=== PATIENT | female | born 1985 | race Caucasian/White ===

== ENCOUNTER 2019-04-02 01:59 | Emergency (ER) | payer OTHER ==
[~2019-04-02] VITALS: Ht 167.6 cm; Wt 116.6 kg
[~2019-04-02 01:59] MED LIST: ACETAMINOPHEN-1 EAC1 PO; ALLERGY MEDICIN25 MG PO; ALLOPURINOL 30300 M2 PO; CARDIZEM CD180 MG PO; CEFDINIR300 MG PO; FLONASE 0.05%50 MCG NASAL; HYDROCODONE-AP1 EAC6 PO; LEVAQUIN 500 M500 M2 PO; MAXALT10 MG PO; MEDROXYPROGESTE10 MG PO; MELATONIN3 MG PO; NAPROSYN500 MG PO; PERCOCET PO; PHENERGAN 25 MG25 M1 PO; TOPAMAX200 MG PO; TRIAMCINOLONE A80 G2 TOP; TYLENOL325 MG PO; ZOFRAN ODT4 MG DISSOLVE; ZOFRAN ODT8 MG PO
[2019-04-02] MEDS ORDERED: ESTRODIAL PO (02:07)
[2019-04-02] MEDS ORDERED: PROGESTERO50 MG/1 ML IM (02:08)
[2019-04-02 03:07] LABS: ABSOLUTE NEUTROPHILS 5.5 thou/uL (1.4-8.2); BASOPHILS 0.6 % (0.0-2.0); EOSINOPHILS 0.5 % (0.0-3.0); HEMOGLOBIN 13.3 gm/dL (12.0-15.0); LYMPHOCYTES 14.8 % (24.0-44.0); MCH 29.9 pg (26.0-34.0); MCHC 32.5 g/dL (28.0-37.0); MCV 91.9 fL (80.0-100.0); MONOCYTES 11.5 % (1.0-8.0); PLATELET COUNT 254 thou/uL (150-400); POLYS 72.6 % (36.0-66.0); RBC 4.46 mil/uL (4.20-5.00); RDW 14.2 % (10.5-14.5); WBC 7.5 thou/uL (4.0-11.0)
[2019-04-02 03:13] LABS: ANION GAP 10 mmol/L (7-16); BUN 7 mg/dL (7-18); CALCIUM 9.3 mg/dL (8.5-10.1); CHLORIDE 102 mmol/L (98-107); CO2 24 mmol/L (21-32); CREATININE 0.9 mg/dL (0.6-1.0); GLUCOSE 97 mg/dL (74-106); POTASSIUM 3.3 mmol/L (3.5-5.1); SODIUM 136 mmol/L (136-145)
[2019-04-02 03:21] LABS: TROPONIN-I <0.06 ng/mL (<0.06)
[2019-04-02 04:32] VITALS: BP 105/76
--- NOTE | 2019-04-02 16:10 | EKG ---
[address] [place] [address] ELECTROCARDIOGRAM REPORT Name: KENDRA VILLANUEVA [id number] Admission: 04/02/19 Attend Phys: Discharge: 04/02/19 Date of : 87 Report #: [id number] THIS REPORT FOR: //name// [facility] ED Test Date: 2019-04-02 Test Time: 02:40:17 Pat Name: KENDRA VILLANUEVA Department: Room: Gender: F [employer] In[employer]ist: : [id number] Requested By: Roscoe Angel Order Number: [id number] MD: Eros Perry Measurements Intervals [place] Rate: 91 P: 38 TX: 158 QRS: 3 QRSD: 89 T: 13 QT: 367 QTc: 452 Interpretive Statements Sinus rhythm Normal tracing Compared to ECG 11/19/2015 16:11:41 No significant changes Electronically Signed On 04-02-2019 16:10:24 [employer] by Eros Perry [email or web address] <ELECTRONICALLY SIGNED> By: Eros Perry MD, [facility] 04/02/19 1610 0240 0240 Eros Perry MD, FACC /EPI
== END 2019-04-02 04:34 | disposition home or self-care (01) ==
LOC: ER 01:59
PROVIDERS: Emergency Medicine
DX: O99.281 Endocrine, nutritional and metabolic diseases complicating pregnancy, first trimester (principal); E87.6 Hypokalemia; R07.89 Other chest pain; R05 Cough; G43.909 Migraine, unspecified, not intractable, without status migrainosus; F32.9 Major depressive disorder, single episode, unspecified; Z85.05 Personal history of malignant neoplasm of liver; Z85.028 Personal history of other malignant neoplasm of stomach; Z88.8 Allergy status to other drugs, medicaments and biological substances; Z87.891 Personal history of nicotine dependence; Z3A.01 Less than 8 weeks gestation of pregnancy